=== PATIENT | female | born 1985 | race Caucasian/White ===

== ENCOUNTER 2024-06-18 12:23 | Day surgery (SDC) | payer OTHER ==
[2024-06-10 13:32] VITALS: BMI 29.6
[2024-06-18 12:49] VITALS: RESP 16
[2024-06-18 14:29] VITALS: PULSE 82; TEMP 98
[2024-06-18 14:46] VITALS: BP 104/70
== END 2024-06-18 14:35 | disposition home or self-care (01) ==
LOC: FASU-ENDO 12:23
PROVIDERS: ATTEND Internal Medicine Gastroenterology
PROC: 0DB68ZX Excision of Stomach, Via Natural or Artificial Opening Endoscopic, Diagnostic (ICD-10-PCS; 2024-06-18)
PROC: 0DB48ZX Excision of Esophagogastric Junction, Via Natural or Artificial Opening Endoscopic, Diagnostic (ICD-10-PCS; 2024-06-18)
PROC: 0DB98ZX Excision of Duodenum, Via Natural or Artificial Opening Endoscopic, Diagnostic (ICD-10-PCS; principal; 2024-06-18 13:57)
DX: K44.9 Diaphragmatic hernia without obstruction or gangrene (principal); K31.9 Disease of stomach and duodenum, unspecified; K20.90 Esophagitis, unspecified without bleeding; R10.13 Epigastric pain
CPT/HCPCS: 81025; 88305-TC; 88342-TC